=== PATIENT | male | born 1985 | race Two or more races ===

== ENCOUNTER 2021-02-14 23:58 | Emergency (ER) | payer SELFPAY ==
[~2021-02-14] VITALS: Ht 185.4 cm; Wt 98.0 kg
--- NOTE | 2021-02-15 00:09 | PHYS DOC ---
General Adult HPI: HPI: Patient is a 35 year old male presents with a chief complaint of right shoulder pain. Patient has a past medical history of chronic shoulder pain from an injury sustained while patient was in his 20s. Patient states over the last few days shoulder pain progressively worse particularly at night. Patient states difficulty sleeping due to pain. States last few days had difficulty working lifting objects because of pain in his right shoulder. On exam patient is neurovascularly intact. Has pain with range of motion of the right shoulder there are no deformities noted. Patient has been using over the counter medications with no relief Review of Systems: Review of Systems: Constitutional: Denies fever or chills. [] Eyes: Denies change in visual acuity. [] HENT: Denies nasal congestion or sore throat. [] Respiratory: Denies cough or shortness of breath. [] Cardiovascular: Denies chest pain or edema. [] GI: Denies abdominal pain, nausea, vomiting, bloody stools or diarrhea. [] : Denies dysuria. [] Musculoskeletal: Denies back pain or joint pain. [] Positive shoulder pain Integument: Denies rash. [] Neurologic: Denies headache, focal weakness or sensory changes. [] Endocrine: Denies polyuria or polydipsia. [] Lymphatic: Denies swollen glands. [] Psychiatric: Denies depression or anxiety. [] Heart Score: C/O Chest Pain: N/A Risk Factors: Risk Factors: DM, Current or recent (<one month) smoker, HTN, HLP, family history of CAD, obesity. Risk Scores: Score 0 - 3: 2.5% MACE over next 6 weeks - Discharge Home Score 4 - 6: 20.3% MACE over next 6 weeks - Admit for Clinical Observation Score 7 - 10: 72.7% MACE over next 6 weeks - Early Invasive Strategies Physical Exam: PE: Constitutional: Well developed, well nourished, no acute distress, non-toxic appearance. [] HENT: Normocephalic, atraumatic, bilateral external ears normal, oropharynx moist, no oral exudates, nose normal. [] Eyes: PERRLA, EOMI, conjunctiva normal, no discharge. [] Neck: Normal range of motion, no tenderness, supple, no stridor. [] Cardiovascular:Heart rate regular rhythm, no murmur [] Lungs & Thorax: Bilateral breath sounds clear to auscultation [] Abdomen: Bowel sounds normal, soft, no tenderness, no masses, no pulsatile masses. [] Skin: Warm, dry, no erythema, no rash. [] Back: No tenderness, no CVA tenderness. [] Extremities: No tenderness, no cyanosis, no clubbing, ROM intact, no edema. [No deformities right upper extremity right upper extremity neurovascularly intact] Neurologic: Alert and oriented X 3, normal motor function, normal sensory function, no focal deficits noted. [] Psychologic: Affect normal, judgement normal, mood normal. [] EKG: EKG: [] Radiology/Procedures: Radiology/Procedures: [] Impression: Wet read x-ray no acute fractures or dislocation. Course & Med Decision Making: Course & Med Decision Making Pertinent Labs and Imaging studies reviewed. (See chart for details) [] Treated with Toradol and Ultram placed in a sling referred to orthopedics. Ana Paula Disclaimer: Ana Paula Disclaimer: This electronic medical record was generated, in whole or in part, using a voice recognition dictation system. Departure Departure Impression: Primary Impression: Shoulder pain, right Disposition: 01 HOME / SELF CARE / HOMELESS Condition: STABLE Referrals: FERNIE ROBISON DO Patient Instructions: Shoulder Pain Scripts Tramadol Hcl (ULTRAM) 50 Mg Tablet 1 TAB PO PRN Q6HRS PRN for pain MDD 4 Tablet(s) for 7 Days, #28 TAB 0 Refills Prov: CECILIO PERRIN DO 02/15/21 CECILIO PERRIN DO Feb 15, 2021 00:09
[2021-02-15 00:10] VITALS: BP 142/109
[2021-02-15] MEDS ORDERED: traMADol 50 MG TABLET PO ONE (00:15)
--- NOTE | 2021-02-15 01:01 | RAD ---
XR SHOULDER_RIGHT 2+ VIEWS History: Severe right shoulder pain. No known injury. Comparison: None. Technique: 3 views of the right shoulder. Findings: Osseous mineralization is normal. No acute fracture or dislocaton. Minimal acromioclavicular joint de generative change. Soft tissues are unremarkable. Impression: 1. No acute osseous abnormality of the right shoulder. Electronically signed by: Dae Salmeron MD (02/15/2021 12:59 AM) [facility]
[2021-02-15] MEDS ORDERED: TRAM-48 PO ×2 (01:28→01:32)
== END 2021-02-15 01:47 | disposition home or self-care (01) ==
LOC: ER 23:58
DX: M25.511 Pain in right shoulder (principal); G89.29 Other chronic pain
CPT/HCPCS: 73030; 99283; A4565